=== PATIENT | female | born 1990 | race African-American/Black ===

== ENCOUNTER 2020-06-27 16:49 | Emergency (ER) | payer OTHER, SELFPAY ==
--- NOTE | ~2020-06-27 | XR_ITS ---
XR knee LT 3V DATE: 06/27/2020 17:24 INDICATION: Fall 3 days ago. Probably pain over the top of the knee, knee popping TECHNIQUE: 3 views COMPARISON: None FINDINGS: No fracture or dislocation or joint effusion. Superior pole patellar enthesopathy at the insertion of the quadriceps tendon. Joint spaces are well preserved. No radiopaque intra-articular loose body or chondrocalcinosis. IMPRESSION: No fracture or dislocation or joint effusion Reviewed, dictated and finalized at location [facility].
[2020-06-27 16:51] VITALS: BP 136/92; PULSE 84; RESP 18; TEMP 36.3; O2SAT 100
--- NOTE | 2020-06-27 17:12 | PC.NURSE ---
Pt to radiology via wheelchair.
--- NOTE | 2020-06-27 18:26 | ED.GENADULT ---
HPI - General Adult General Chief complaint: Extremity Injury, Lower Stated complaint: fall/knee pain Time Seen by Provider: 06/27/20 17:01 Source: patient Mode of arrival: ambulatory Limitations: no limitations History of Present Illness HPI narrative: Patient is a 29-year-old female who presents with left knee pain noting she slipped on a wet floor at work on injured the knee has since had aching pain throughout the knee joint worse with weightbearing activity presents in no distress does not take anything for symptoms Related Data Allergies Allergy/AdvReac Type Severity Reaction Status Date / Time No Known Allergies Allergy Unknown Verified 06/27/20 16:56 Review of Systems Review of Systems: Narrative: CONSTITUTIONAL: Denies fever, chills, or sweats. SKIN: Denies bruising or swelling MUSCULOSKELETAL: Denies back pain, or myalgia. NEUROLOGIC: Denies numbness,, or weakness. [facility] Family History Family History (Updated 12/05/13 @ 07:13 by DOCTOR UNKNOWN) Father Hypertension Mother Hypertension Sibling Asthma Social History Social History (Updated 06/27/20 @ 18:27 by Juve Veliz PA-C) Smoking status: Never smoker Second hand tobacco smoke exposure: No Alcohol intake: never Gender identity (if verbalized by the patient): Female Exam Narrative: Exam Narrative: GENERAL: Well-appearing, well-nourished, and in no acute distress. HEAD: Normocephalic, atraumatic. EYES: PERRLA and EOMI. ENT: Nares clear, no rhinorrhea or epistaxis. Mucous membranes moist. EXTREMITIES: Normal range of motion. No edema. Tenderness of the anterior left knee no deformity SKIN: Warm, dry, no rash. NEURO: No focal deficits. Alert and oriented x3. Neurovascularly intact PSYCH: Normal mood and affect. Course Course Emergency Course: Patient in the room no distress placed in Esequiel wrap will follow with orthopedic surgery felt appropriate for outpatient reevaluation Vital Signs Vital signs: Vital Signs Temperature 97.3 F L 06/27/20 16:51 Pulse Rate 84 06/27/20 16:51 Respiratory Rate 18 06/27/20 16:51 Blood Pressure 136/92 H 06/27/20 16:51 Pulse Oximetry 100 06/27/20 16:51 Temperature 97.3 F L 06/27/20 16:51 Pulse Rate 84 06/27/20 16:51 Respiratory Rate 18 06/27/20 16:51 Blood Pressure 136/92 H 06/27/20 16:51 Pulse Oximetry 100 06/27/20 16:51 Medical Decision Making MDM Narrative Medical decision making narrative: Patients injury or pain is consistent with musculoskeletal etiology. No signs of neurological or vascular compromise on exam. Compartments and tisues are soft without signs of compartment syndrome. Pain is felt appropriate for further evaluation on an outpatient basis. Vital Signs Vital Signs: Vital Signs Temperature 97.3 F L 06/27/20 16:51 Pulse Rate 84 06/27/20 16:51 Respiratory Rate 18 06/27/20 16:51 Blood Pressure 136/92 H 06/27/20 16:51 Pulse Oximetry 100 06/27/20 16:51 Temperature 97.3 F L 06/27/20 16:51 Pulse Rate 84 06/27/20 16:51 Respiratory Rate 18 06/27/20 16:51 Blood Pressure 136/92 H 06/27/20 16:51 Pulse Oximetry 100 06/27/20 16:51 Imaging Data Radiologist's impression: ITS Impressions Knee X-Ray 06/27/20 17:25 IMPRESSION: No fracture or dislocation or joint effusion Discharge Plan Discharge Clinical Impression: Acute pain of left knee Patient Disposition: Home, Self-Care Condition: Stable Instructions: Antibiotic Form, Arthralgia (ED) Additional Instructions: Wear Esequiel wrap with limited weight on the affected leg until able to bear weight without pain. Ice and elevate extremity. Pain medication as needed and directed. Follow up with your doctor for further care in the next 7 days. Return if symptoms worsen or concerns Prescriptions: New ibuprofen [IBU] 600 mg tablet 600 mg PO Q6H PRN (Reason: fever or pain) Qty: 7 RF: 0 Follow-up/Referrals: Joshua,Misty
[2020-06-27 18:52] VITALS: BP 136/92; PULSE 84; RESP 18; O2SAT 100
== END 2020-06-27 18:54 | disposition home or self-care (01) ==
PROVIDERS: Emergency Provider Emergency Medicine; PCP Registered Nurse
DX: M25.562 Pain in left knee (principal); W01.0XXA Fall on same level from slipping, tripping and stumbling without subsequent striking against object, initial encounter
CPT/HCPCS: 73562; 99283

== ENCOUNTER 2022-09-06 13:21 | Outpatient (CLI) | payer BC, SELFPAY ==
--- NOTE | ~2022-09-06 | XR_ITS ---
AP and lateral views of the left hip Clinical history: Pain Findings: No acute fracture or dislocation is seen. Osseous alignment is anatomic. The left hip joint and left SI joint are preserved. Soft tissues are unremarkable. Impression: No significant abnormality is seen. Reviewed, dictated and finalized at [facility]. Impression: No significant abnormality is seen.
== END 2022-09-06 13:22 ==
LOC: MICIMG 13:26
PROVIDERS: PCP Registered Nurse; Visit Provider Registered Nurse
DX: M25.552 Pain in left hip (principal)
CPT/HCPCS: 73502

== ENCOUNTER 2024-02-10 02:43 | Emergency (ER) | payer BC, SELFPAY ==
[2024-02-10 02:46] VITALS: BP 143/70; PULSE 92; RESP 20; TEMP 36.5; O2SAT 100
--- NOTE | 2024-02-10 03:40 | ED.GENADULT ---
HPI - General Adult General Chief complaint: Back Pain/Injury Stated complaint: back pain Time Seen by Provider: 02/10/24 03:19 History of Present Illness HPI narrative: patient 33-year-old female presents emergency department with chief complaint of back pain. Patient reports he has been having back pain for some time for work injury approximately 3 years ago sees a provider in [place] and is scheduled to have spinal steroid injections. Patient states that she bent over and started having pain in her low back with pain radiating down left leg patient denies numbness tingling denies bowel or bladder incontinence denies saddle anesthesia denies footdrop Related Data Allergies Allergy/AdvReac Type Severity Reaction Status Date / Time No Known Allergies Allergy Unknown Verified 09/02/20 09:48 Review of Systems Review of Systems: GENERAL: Well-appearing, well-nourished, and in no acute distress. HEAD: Normocephalic, atraumatic. EYES: PERRLA and EOMI. ENT: Nares clear, no rhinorrhea or epistaxis. Mucous membranes moist. NECK: Supple. CHEST: Clear to auscultation. No respiratory distress. HEART: Regular rate and rhythm. No murmur heard. Normal peripheral pulses. ABDOMEN: Soft, nontender, nondistended, normal active bowel sounds. EXTREMITIES: Normal range of motion. No edema. SKIN: Warm, dry, no rash. NEURO: No focal deficits. Alert and oriented x3. PSYCH: Normal mood and affect. PMFSH Past Medical History Medical History Asthma Osteoarthritis of left knee Family History Family History Father Hypertension Mother Hypertension Sibling Asthma Social History Social History Smoking status: Never smoker Second hand tobacco smoke exposure: No Alcohol intake: never Living arrangements: alone Occupation/Education: occupation Additional occupation/education comments: [employer] Gender identity (if verbalized by the patient): Female Exam Narrative: GENERAL: Well-appearing, well-nourished, and in no acute distress. HEAD: Normocephalic, atraumatic. EYES: PERRLA and EOMI. ENT: Nares clear, no rhinorrhea or epistaxis. Mucous membranes moist. NECK: Supple. CHEST: Clear to auscultation. No respiratory distress. HEART: Regular rate and rhythm. No murmur heard. Normal peripheral pulses. ABDOMEN: Soft, nontender, nondistended, normal active bowel sounds. EXTREMITIES: Normal range of motion. No edema. SKIN: Warm, dry, no rash. NEURO: No focal deficits. Alert and oriented x3. PSYCH: Normal mood and affect. Course Vital Signs Vital signs: Vital Signs Temperature 36.5 C 02/10/24 02:46 Pulse Rate 92 02/10/24 02:46 Respiratory Rate 20 02/10/24 02:46 Blood Pressure 143/70 H 02/10/24 02:46 Pulse Oximetry 100 02/10/24 02:46 Oxygen Delivery Room Air 02/10/24 02:46 Temperature 36.5 C 02/10/24 02:46 Pulse Rate 92 02/10/24 02:46 Respiratory Rate 20 02/10/24 02:46 Blood Pressure 143/70 H 02/10/24 02:46 Pulse Oximetry 100 02/10/24 02:46 Oxygen Delivery Room Air 02/10/24 02:46 Medical Decision Making MDM Narrative Medical decision making narrative: Differential diagnosis includes lumbar strain, sciatica, lumbar radiculopathy, cauda equina, patient showing no focal neurological deficits findings consistent with cauda equina. Patient has no saddle anesthesia no footdrop the patient is had imaging and MRIs as an outpatient and is followed by a provider for her back pain and is scheduled to have injections. The patient will be given an IM dose of steroids started on pain control muscle relaxers and a steroid pulse. Vital Signs Vital Signs: Vital Signs Temperature 36.5 C 02/10/24 02:46 Pulse Rate 92 02/10/24 02:46 Respiratory Rate 20 02/10/24 02:46 Blood Pressure 143/70 H 02/10/24 02:46 Pulse Oximetry 100 02/10/24 02:46 Oxygen Delivery Room Air 02/10/24 02:46 Temperature 36.5 C 02/10/24 02:46 Pulse Rate 92 02/10/24 02:46 Respiratory Rate 20 02/10/24 02:46 Blood Pressure 143/70 H 02/10/24 02:46 Pulse Oximetry 100 02/10/24 02:46 Oxygen Delivery Room Air 02/10/24 02:46 Discharge Plan Discharge Clinical Impression: Low back pain Patient Disposition: Home, Self-Care Condition: Stable Instructions: Antibiotic Form, Acute Low Back Pain (ED) Prescriptions: New lidocaine [Lidoderm] 5 % adhesive patch,medicated See Rx Instructions .ROUTE .COMPLEX Qty: 15 0RF Rx Instructions: leave on most painful area for up to 12 hrs cyclobenzaprine 10 mg tablet 10 mg PO TID PRN (Reason: muscle spasm) Qty: 21 0RF diclofenac potassium 50 mg tablet 50 mg PO TID PRN (Reason: pain) Qty: 30 0RF prednisone 20 mg tablet 40 mg PO DAILY 5 Days Qty: 10 0RF Follow-up/Referrals: Mari,MIKALA Lazo [Primary Care Provider] - Time of Disposition: 03:53
[2024-02-10] MEDS: dexAMETHasone SOD PHOS INJ 10 MG/ML 1 ML VIAL IM (03:57)
[2024-02-10] MEDS: CYCLOBENZAPRINE HCL 10 MG TABLET PO (03:57)
[2024-02-10] MEDS: HYDROcodone/acetaminophen (*CRX) 5-325 MG TABLET 1 TAB PO (03:57)
[2024-02-10] MEDS: KETOROLAC (*BKC) 60 MG/2 ML VIAL IM (03:58)
[2024-02-10] MEDS: LIDOCAINE 5% PATCH 1 PATCH TRANSDERM (03:58)
[2024-02-10 04:19] VITALS: BP 138/90; PULSE 87; RESP 15; O2SAT 97
== END 2024-02-10 04:20 | disposition home or self-care (01) ==
PROVIDERS: Emergency Provider Emergency Medicine; PCP Registered Nurse
DX: M54.50 Low back pain, unspecified (principal)
CPT/HCPCS: 96372; 99284; A9270; J1100; J1885